=== PATIENT | male | born 1970 | race Caucasian/White ===

== ENCOUNTER 2016-10-06 06:05 | Emergency (ER) | payer OTHER ==
[2016-10-06 06:28] VITALS: O2SAT 96
[2016-10-06 06:52] VITALS: PULSE 0; RESP 0
== END 2016-10-06 10:46 | disposition expired | DRG 298 ==
LOC: ED 06:05
DX: I46.9 Cardiac arrest, cause unspecified (principal); V54.5XXA Driver of pick-up truck or van injured in collision with heavy transport vehicle or bus in traffic accident, initial encounter
CPT/HCPCS: 99291